=== PATIENT | male | born 1995 | race Caucasian/White ===

== ENCOUNTER 2017-09-15 20:27 | Emergency (ER) | payer OTHER ==
[2017-09-15 20:34] VITALS: BP 99/71
--- NOTE | 2017-09-15 21:42 | UC ---
Ear Complaint HPI - HPI Summary HPI Summary: 21 YO MALE WAS TRYING TO REMOVE WAX FROM RIGHT EAR AND PUSHED IT IN FURTHER DECREASED HEARING NO BLEEDING NO HX PETS - History of Current Complaint Chief Complaint: UCEar Stated Complaint: EAR PAIN Time Seen by Provider: 09/15/17 21:33 Hx Obtained From: Patient Onset/Duration: Sudden Onset, Lasting Hours Severity Initially: Moderate Severity Currently: Moderate Pain Intensity: 4 Pain Scale Used: 0-10 Numeric Aggravating Factors: Other Associated Signs/Symptoms: Positive: Hearing Loss - Allergies/Home Medications Allergies/Adverse Reactions: Allergies Allergy/AdvReac Type Severity Reaction Status Date / Time No Known Allergies Allergy Verified 09/15/17 20:34 Home Medications: Home Medications DULoxetine DR CAP* [Cymbalta CAP*] 1 tab PO DAILY 09/15/17 [History Confirmed ] Lisdexamfetamine(NF) [Vyvanse(NF)] 1 tab PO DAILY 09/15/17 [History Confirmed ] PMH/Surg Hx/FS Hx/Imm Hx Previously Healthy: Yes - Surgical History Surgical History: None - Family History Known Family History: Positive: Hypertension - Social History Alcohol Use: Occasionally Substance Use Type: None Smoking Status (MU): Never Smoked Tobacco Review of Systems Constitutional: Negative Skin: Negative Eyes: Negative ENT: Ear Ache Respiratory: Negative Cardiovascular: Negative Gastrointestinal: Negative Genitourinary: Negative Motor: Negative Neurovascular: Negative Musculoskeletal: Negative Neurological: Negative Psychological: Negative Is Patient Immunocompromised?: No All Other Systems Reviewed And Are Negative: Yes Physical Exam Triage Information Reviewed: Yes Appearance: Well-Appearing, No Pain Distress, Well-Nourished Vital Signs: Initial Vital Signs Temp 99.0 F 09/15/17 20:30 Pulse 69 09/15/17 20:30 Resp 12 09/15/17 20:30 BP 99/71 09/15/17 20:30 Pulse Ox 100 09/15/17 20:30 Vital Signs Reviewed: Yes Eyes: Positive: Conjunctiva Clear ENT: Negative: Hearing grossly normal, TMs normal - UNABLE TO VISUALIZE TMs DUE TO CERUMEN Neck: Positive: Supple, Nontender, No Lymphadenopathy Respiratory: Positive: Lungs clear, Normal breath sounds, No respiratory distress Cardiovascular: Positive: RRR, No Murmur Neurological: Positive: Alert Psychological Exam: Normal Skin Exam: Normal Re-Evaluation - Re-Evaluation Second Eval Re-Evaluation Time: 22:18 Change: Improved - TMs OK bilaterally Ear Complaint Course/Dx - Differential Dx/Diagnosis Provider Diagnoses: cerumen impaction Discharge - Discharge Plan Condition: Stable Disposition: HOME Patient Education Materials: Cerumen Impaction (ED) Referrals: No Primary Care Phys,NOPCP [Primary Care Provider] - Additional Instructions: call for any questions return for any problems
== END 2017-09-15 22:22 | disposition home or self-care (01) ==
LOC: UCEAST 20:27
DX: H61.21 Impacted cerumen, right ear (principal)
CPT/HCPCS: 99213; G0463